=== PATIENT | male | born 1990 | race Caucasian/White ===

== ENCOUNTER 2016-04-14 12:56 | Emergency (ER) | payer SELFPAY ==
[2016-04-14 14:20] VITALS: BP 155/91; PULSE 89; TEMP 97.6; BMI 29.5
[2016-04-14] MEDS ORDERED: PREDNISONE 20 MG TAB PO ONE (14:59)
[2016-04-14] MEDS ORDERED: BENZONATATE 100 MG PERLES PO ONE (14:59)
[2016-04-14] MEDS ORDERED: AZITHROMYCIN 250 MG TAB PO ONE (14:59)
--- NOTE | 2016-04-14 15:02 | EDPRACDOC ---
- General Information Chief Complaint: Flu-Like Symptoms Stated Complaint: COUGH/MARTINA/FEVER Time Seen by Provider: 04/14/16 14:24 Information Source: Patient Mode Of Arrival: Car Home Medications: Home Medications Azithromycin [Zithromax] 250 mg PO DAILY #6 tablet 04/14/16 Benzonatate [Tessalon] 200 mg PO TID #20 per 04/14/16 Prednisone [Deltasone, Orasone] 20 mg PO BID #12 tab 04/14/16 Allergies/Adverse Reactions: Allergies Allergy/AdvReac Type Severity Reaction Status Date / Time Penicillins Allergy Hives* Verified 06/13/15 05:56 PEN Allergy Hives* Uncoded 06/13/15 05:56 - History of Present Illness Symptoms Started: SEVERAL DAYS AGO HPI: PT PRESENTS WITH PRODUCTIVE COUGH, NASAL CONGESTION, FEVER, NAUSEA AND VOMITING FOR THE PAST COUPLE OF DAYS. Symptoms: Reports: Cough, Nasal Symptoms, Nausea, Vomiting Recently Treated Infections:: Denies: Otitis media, Pneumonia, URI Recent Medications: Reports: None Relevant History Of: Reports: None Shortness of Breath: None Cough Frequency: Intermittent Cough Description: Reports: Congested Rhinorrhea: Reports: Green Ear Symptoms: Reports: None ED Past Medical History - History Reviewed Yes Nurses notes reviewed and agree except as marked - Social Medical History Smoking Status: Never smoker EDM Review of Systems - Review of Systems ROS Negative Except as Marked: Yes All systems reviewed and were negative except as marked - Physical Exam Constitutional: Alert Oriented to: Time, Person, Place Last recorded Vital Signs: Last Vital Signs Temp 97.6 F 04/14/16 14:19 Pulse 89 04/14/16 14:19 Resp 20 04/14/16 14:19 BP 155/91 04/14/16 14:19 Pulse Ox 96 04/14/16 14:19 Oxygen Pulse Oxygen Saturation 96 O2 Device Oxygen Flow Rate Fraction of Inspired Oxygen ( FIO2) - HEENT Head: Normal ( normocephalic) Eye Exam: Normal (PERRL, EOMI, Sclera white) Oropharynx: Red Tympanic Membrane: Normal Nose: No Symptoms Reported (septum midline) Neck: Normal (FROM, trachea at midline) - Respiratory/Cardiovascular Respiratory: Normal - CTA (BBS clear to auscultation without adventitious sounds ) Cardiovascular: Normal (RRR without murmur, gallop or rub) - GI Auscultation: Normal (NABS) Palpation: Normal (Soft,No rebound or guarding, non distended) Tenderness: Non tender Betancur's Sign: Negative Rectal Exam: Deferred - Musculoskeletal Back: Normal (Non-Tender) Extremities: Normal (Normal tone, Pulses 2+ No cyanosis or edema, FROM) - Integumentary Skin: Normal, Warm, Dry Lymphatics: Normal (no adenopathy) - Neurologic Memory Impaired: Normal Motor Function: Normal (Normal tone, Pulses 2+ No cyanosis or edema, FROM) Cranial Nerve: Normal (CN II-X11 intact sensation, strength 5/5) Cerebellar: Normal Mood Description: Normal Perception: Normal - Differential Diagnosis URI Decision Time to Discharge: 15:02 - Departure Disposition: Home Condition: Stable Final Diagnosis: Acute upper respiratory infection Instructions: Upper Respiratory Infection (ED) Education/Counseling Given To: Patient Education/Counseling Given Regarding: Diagnosis, Treatment, Prognosis, Follow Up Referrals: Elliot Palacios MD [Staff Physician] - One Week Prescriptions: New Azithromycin [Zithromax] 250 mg PO DAILY #6 tablet Benzonatate [Tessalon] 200 mg PO TID #20 per Prednisone [Deltasone, Orasone] 20 mg PO BID #12 tab Discontinued Pantoprazole Sodium [Protonix] 1 tab PO DAILY #14 tab Oxycodone HCl [Roxicodone] 5 mg PO Q4-6H PRN #10 tablet PRN Reason: Breakthrough Pain Ondansetron HCl [Zofran] 4 mg PO Q6H PRN #15 tab PRN Reason: Nausea/Vomiting Additional Instructions: INCREASE FLUID INTAKE. FOLLOW UP WITH PRIMARY CARE PROVIDER NEXT WEEK. TAKE ALL ANTIBIOTICS PRESCRIBED. RETURN TO THE ED FOR WORSENING SYMPTOMS OR CONCERNS.
== END 2016-04-14 15:17 | disposition home or self-care (01) ==
LOC: EDMC 12:56
DX: J06.9 Acute upper respiratory infection, unspecified (principal)
CPT/HCPCS: 99282; J3490